=== PATIENT | male | born 1975 | race Two or more races ===

== ENCOUNTER 2016-09-22 11:26 | Emergency (ER) | payer SELFPAY ==
[2016-09-22 12:38] LABS: URINE BILIRUBIN NEGATIVE (NEGATIVE); URINE BLOOD 3+ (NEGATIVE); URINE GLUCOSE (UA) NEGATIVE (NEGATIVE); URINE LEUKOCYTE ESTERASE NEGATIVE (NEGATIVE); URINE NITRITE NEGATIVE (NEGATIVE); URINE PROTEIN NEGATIVE (NEGATIVE); URINE UROBILINOGEN NORMAL (0-1 mg/dl)
[2016-09-22 12:41] LABS: URINE APPEARANCE HAZY; URINE COLOR AMBER
[2016-09-22 12:56] LABS: URINE RBC 30-40 /hpf; URINE WBC 0-1 /hpf
[2016-09-22 12:57] LABS: URINE BACTERIA FEW; URINE EPITHELIAL CELLS 0 /hpf
[2016-09-22 13:29] LABS: BASO # 0.1 K/mm3 (0.0-0.2); BASO % 0.7 % (0.2-1.0); EOS # 0.2 (0.0-0.5); EOS % 2.7 % (0.9-2.9); HEMATOCRIT 46.9 % (32.0-52.0); HEMOGLOBIN 15.5 gm/l (14.0-18.0); IMM NEUT% 0.3 % (0-1); LYMPH # 1.9 (1.0-4.8); LYMPH % 28.9 % (15-45); MEAN CELL VOLUME 86.5 fl (80.0-94.0); MEAN CORPUSCULAR HEMOGLOBIN 28.6 pg (27.0-31.0); MONO # 0.5 (0.0-0.8); MONO % 7.3 % (4-12); NEUT % 60.1 % (43-75); PLATELET COUNT 300 K/mm3 (130-400); RED CELL DISTRIBUTION WIDTH 13.7 % (11.5-14.5)
[2016-09-22 13:36] LABS: ALB/GLOB RATIO 1.4 (>1.0); CALCIUM 9.4 mg/dL (8.6-10.3)
--- NOTE | 2016-09-22 14:02 | CT ---
ABD/PELVIS W/O CON: 09/22/2016 12:54 PM INDICATION: Right lower quadrant pain for 63 months. Hematuria.. COMPARISON: None. TECHNIQUE: Contiguous 3 mm transaxial images from a [employer] [address] scanner were obtained from the lung bases through the pubic symphysis without oral or intravenous contrast. Multiplanar images were created at the CT scanner. CT DI: 13.9 DLP: 718.2 FINDINGS: Lung base: No abnormality is seen at the lung bases. There is no pericardial effusion. This examination is limited for the evaluation of solid organs and vascular structures due to the lack of intravenous contrast which is standard for urinary calculus assessment CT. Liver: Diffuse fatty infiltration with focal sparing along the gallbladder fossa.. Gallbladder: Normal Spleen: Normal. Pancreas: Normal. Adrenal Glands: Normal. Right kidney & ureter: - Calculi - No . - Ureter Calculi - 1 to 2 mm ureterovesicular junction stone is present.. - Obstruction / hydronephrosis - Mild Left kidney & ureter: - Calculi - No . - Ureter Calculi- No . - Obstruction / hydronephrosis - No The unopacified stomach and bowel is within normal limits. Appendix is normal. No lymphadenopathy is seen in the abdomen or pelvis No free fluid in the abdomen or pelvis. Tiny fat-containing umbilical hernia is present. Urinary bladder: -Bladder Calculi- No . - Bladder is distended adequately. - Wall is thin. Bone windows- No lytic or sclerotic lesions. Spine maintains anatomic alignment. IMPRESSION: 1. 1 to 2 mm right ureterovesicular junction stone with mild hydronephrosis. No evidence of nonobstructive calculi are identified. 2. Non-contrast evaluation of the abdomen and pelvis is otherwise without significant abnormality. Findings were called to Dr. Chase at approximately 1356 hours on 09/22/2016.
[2016-09-22] MEDS ORDERED: ONDANSETRON 4 MG/2ML 2 ML VIAL ONE (14:34)
[2016-09-22] MEDS ORDERED: KETOROLAC TROMETHAMINE 30 MG/ML 1 ML VIAL ONE (14:35)
[2016-09-22] MEDS ORDERED: HYDROMORPHONE HCL 1 MG/ML SYRINGE ONE (14:35)
== END 2016-09-22 15:09 | disposition home or self-care (01) ==
LOC: ED 11:26
DX: N20.1 Calculus of ureter (principal)
CPT/HCPCS: 85025; 80053; 81001; 74176; 96375 ×2; 99283 ×2; 96374; J1170; J1885; J2405

== ENCOUNTER 2016-11-18 10:00 | Day surgery (SDC) | payer SELFPAY ==
[2016-11-18] MEDS ORDERED: CEFAZOLIN SODIUM 2 GRAM PREMIX 2 G in Premix (D5W) 100 ml 1 EACH IV PRN (10:21)
[2016-11-18] MEDS ORDERED: LIDOCAINE 1% 2 ML VIAL ID PRN (10:21)
[2016-11-18] MEDS ORDERED: CEFAZOLIN SODIUM 2 GRAM PREMIX 100 ML IV ONE (10:22)
[2016-11-18] MEDS ORDERED: LACTATED RINGERS 1,000 ML ONE ×2 (10:22→15:28)
[2016-11-18] MEDS ORDERED: IV START KIT ONE (10:22)
[2016-11-18] MEDS ORDERED: LIDOCAINE 1%/EPI 1:100,000 (MULTI DOSE) 30 ML VIAL ONE ×2 (11:00→12:26)
[2016-11-18] MEDS ORDERED: FENTANYL 250 MCG/5 ML AMP ONE (12:44)
[2016-11-18] MEDS ORDERED: ROCURONIUM BROMIDE 10 MG/ML DOSE IV ONE ×3 (13:01→13:37)
[2016-11-18] MEDS ORDERED: FAMOTIDINE 10 MG/ML 2ML VIAL ONE (13:01)
[2016-11-18] MEDS ORDERED: PROPOFOL 20 ML IV ONE (13:01)
[2016-11-18] MEDS ORDERED: KETOROLAC TROMETHAMINE 30 MG/ML 1 ML VIAL ONE (13:01)
[2016-11-18] MEDS ORDERED: METOCLOPRAMIDE HCL 5 MG/ML 2ML VIAL ONE (13:01)
[2016-11-18] MEDS ORDERED: ONDANSETRON 4 MG/2ML 2 ML VIAL ONE (13:01)
[2016-11-18] MEDS ORDERED: HYDROMORPHONE HCL 2 MG/ML SYRINGE ONE (13:01)
[2016-11-18] MEDS ORDERED: SODIUM CHLORIDE 0.9% FLUSH 10 ML ONE (13:08)
[2016-11-18] MEDS ORDERED: CEFAZOLIN SODIUM 1,000 MG VIAL ONE (13:08)
[2016-11-18] MEDS ORDERED: MEPERIDINE 25 MG/ML SYRINGE IV PRN (13:14)
[2016-11-18] MEDS ORDERED: ATROPINE SULFATE 0.4 MG/1 ML VIAL IV PRN (13:14)
[2016-11-18] MEDS ORDERED: LABETALOL HCL 5 MG/ML 20ML VIAL IV PRN (13:14)
[2016-11-18] MEDS ORDERED: PROMETHAZINE HCL 25 MG/ML VIAL IM PRN (13:14)
[2016-11-18] MEDS ORDERED: NALOXONE HCL 0.4 MG/ML VIAL IV PRN (13:14)
[2016-11-18] MEDS ORDERED: ONDANSETRON 4 MG/2ML 2 ML VIAL IV PRN ×2 (13:14→14:41)
[2016-11-18] MEDS ORDERED: MORPHINE SULFATE 4 MG/ML SYRINGE IV PRN (13:14)
[2016-11-18] MEDS ORDERED: LACTATED RINGERS 1,000 ML IV SCH ×2 (13:15→14:41)
[2016-11-18] MEDS ORDERED: GLYCOPYRROLATE 0.2 MG/ML 1ML VIAL ONE (14:01)
[2016-11-18] MEDS ORDERED: NEOSTIGMINE METHYLSULFATE 1 MG/ML DOSE ONE (14:01)
--- NOTE | 2016-11-18 14:10 | PCMBPN ---
Brief Post Op Note: Date of Procedure: 11/18/16 Preoperative Diagnosis: 1. Right inguinal hernia, incarcerated Postoperative Diagnosis: 1. Same Procedure: Laparoscopic right inguinal hernia repair with mesh Surgeon: Ana Rosa Mosqueda MD Assist:kodak cannon Anesthesia: GETA Findings: see dictation Condition: stable Complications: none IV Fluids: see anesthesia report Urine Output: see anesthesia report Estimated Blood Loss: 10 mLs Tourniquet Time: N/A Specimens: N/A Implants: 10x15 laparoscopic self fixating mesh Drains: [N/A]
[2016-11-18] MEDS ORDERED: HYDROMORPHONE HCL 1 MG/ML SYRINGE IV PRN (14:41)
[2016-11-18] MEDS ORDERED: OXYCODONE/ACETAMINOPHEN 5/325 MG TABLET PO PRN (14:41)
[2016-11-18] MEDS ORDERED: PROMETHAZINE HCL 25 MG/ML VIAL ONE (15:28)
[2016-11-18] MEDS ORDERED: SCOPOLAMINE 1.5 MG/72 HR 1 EACH PATCH TD ONE ×2 (15:28→15:29)
[2016-11-18] MEDS ORDERED: PROMETHAZINE HCL 25 MG/ML VIAL IM ONE (15:29)
[2016-11-18] MEDS ORDERED: OXYCODONE HCL 5 MG TABLET ONE (16:05)
[2016-11-18] MEDS ORDERED: OXYCODONE/ACETAMINOPHEN 5/325 MG TABLET ONE (16:08)
--- NOTE | 2016-11-18 19:14 | OP ---
KAUSHIK WELLER [id number] : 1975 DATE OF SERVICE: November 18, 2016 PREOPERATIVE DIAGNOSES: Incarcerated right inguinal hernia. POSTOPERATIVE DIAGNOSES: Incarcerated right inguinal hernia. PROCEDURE PERFORMED: LAPAROSCOPIC RIGHT INGUINAL HERNIA REPAIR WITH MESH. SURGEON: Ana Rosa Mosqueda M.D. SAWMILL TALLY CLERK: Larry Abdi ANESTHESIA: General. FINDINGS: Right inguinal hernia with incarcerated hernia sac. TECHNIQUE: The patient was brought to the operating room and placed under general anesthesia. The lower abdomen and groin were prepped and draped in sterile surgical fashion. Local anesthetic was placed just inferior to the umbilicus and a #15 blade scalpel was used to make a less than 3 cm transverse incision. Electrocautery was used to cut through the subcutaneous tissue down to the level of the fascia and the anterior rectus sheath was opened with electrocautery. The rectus muscle was pushed aside and preperitoneal port was placed and the balloon was pumped up 30 times with the camera seeing the inside of the balloon. Once it was in position, we held it in place for about 30 seconds and then blew up the balloon that holds the port in the preperitoneal space and took the other balloon out. Placed CO2 on 15 mmHg and placed the camera back in. I then placed two 5 mm ports under direct visualization and used Kittners to bluntly dissect the right inguinal region down taking the peritoneum down off the abdominal wall. There was a direct inguinal defect that was small but present, and there was a large right inguinal hernia. Once I got most of the peritoneum down, there was still the hernia sac with the cord structures, so I took a grasper and used that to try to pull down the sac. Unfortunately, it was very scarred, so I ended up just having to pull the sac apart to get the sac down out of the inguinal canal. Once that was down, there were just the cord structures going up into the canal. Then at that point, I took a mesh. I oriented it, rolled it up and placed in the cavity and unrolled it into position so it was nice and flat and the peritoneum was out from underneath it so there would be less chance for recurrence. Once it was nice and flat and in good position, I took out the ports and deflated the preperitoneal space, and then closed the anterior fascia with a running #0 Vicryl and closed the skin incisions with #4-0 Monocryl. The patient was awakened and returned to recovery room in stable condition. All needle instrument and sponge counts were correct at the end of the case.
== END 2016-11-18 18:15 | disposition home or self-care (01) ==
LOC: SDC 10:00
PROVIDERS: ATTEND Surgery
PROC: 0YU54JZ Supplement Right Inguinal Region with Synthetic Substitute, Percutaneous Endoscopic Approach (ICD-10-PCS; principal; 2016-11-18)
DX: K40.30 Unilateral inguinal hernia, with obstruction, without gangrene, not specified as recurrent (principal)
CPT/HCPCS: 49650; J0690 ×2; J1170; J3010; A9270 ×2; J2550; J2765; J1885; J2001; J2405; J7120 ×2